=== PATIENT | female | born 1930 | race Asian ===

== ENCOUNTER 2017-10-21 09:41 | Emergency (ER) | payer OTHER, MEDICAID ==
[~2017-10-21] VITALS: Ht 157.5 cm; Wt 58.1 kg
[~2017-10-21 09:41] MED LIST: ASPI81TA2 PO; CALC1TAB50 PO; FLUO10CA65 PO; LISI-219 PO; METO-306 PO; NABU-95 PO; NITR0.4T6 SL; OMEP20CA4 PO; RABE20TA5 PO; TEMA15CA51 PO
[2017-10-21 09:45] VITALS: BP_SYST 114
[2017-10-21 10:19] LABS: BILIRUBIN,URINE NEGATIVE (NEGATIVE); BLOOD, URINE NEGATIVE (NEGATIVE); CLARITY/URINE CLEAR (CLEAR); COLOR,URINE YELLOW (YELLOW); GLUCOSE,URINE NEGATIVE (NEGATIVE); KETONES,URINE NEGATIVE (NEGATIVE); LEUKOCYTE ESTERASE ,URINE 1+ (NEGATIVE); NITRITE, URINE NEGATIVE (NEGATIVE); PROTEIN URINE NEGATIVE (NEGATIVE); UROBILINOGEN,URINE 0.2 (0.2-1.0)
[2017-10-21 10:46] LABS: BACTERIA,URINE FEW /HPF (None Seen); MUCUS,URINE None Seen /LPF (None Seen); RBC,URINE 0-3 /HPF (0-3); YEAST,URINE None Seen /HPF (None Seen)
[2017-10-21 11:12] VITALS: BP_SYST 99
== END 2017-10-21 11:12 | disposition home or self-care (01) ==
LOC: SED 09:41
DX: N39.0 Urinary tract infection, site not specified (principal); L03.211 Cellulitis of face; R03.0 Elevated blood-pressure reading, without diagnosis of hypertension; Z79.899 Other long term (current) drug therapy
CPT/HCPCS: 81000-TC; 87086; 99284

== ENCOUNTER 2017-10-30 14:01 | Inpatient (IN) | payer OTHER, MEDICAID ==
[~2017-10-30] VITALS: Ht 154.9 cm; Wt 54.0 kg
[2017-10-30 14:01] VITALS: BP_SYST 93
[2017-10-30 14:30] LABS: EOSINOPHILS # (AUTO) 0.5 K/uL (0.0-0.4); MONOCYTES # (AUTO) 0.3 K/uL (0.0-1.0)
[2017-10-30 14:37] LABS: ANION GAP 11 (5-15); CALCIUM 8.7 mg/dL (8.4-11.0); CHLORIDE 96 mmol/L (98-107); CREATININE 1.92 mg/dL (0.55-1.30); GLUCOSE 115 mg/dL (70-99); POTASSIUM 4.4 mmol/L (3.5-5.1); SODIUM SERUM 127 mmol/L (136-145); UREA NITROGEN, BLOOD 31 mg/dL (8-21)
[2017-10-30 14:38] LABS: HEMOGLOBIN 13.2 g/dL (12.0-16.0); LYMPHOCYTES # (AUTO) 0.7 K/uL (1.0-5.5); MEAN CORPUSCULAR HEMOGLOBIN 28 pg (27-31); MEAN CORPUSCULAR HGB CONC 34 % (32-36); WHITE BLOOD COUNT (AUTO) 9.5 K/uL (4.8-10.8)
[2017-10-30 14:41] LABS: BASOPHILS # (AUTO) 0.1 K/uL (0.0-0.2); BASOPHILS % (AUTO) 1.3 % (0.0-2.0); EOSINOPHILS % (AUTO) 5.4 % (0.0-4.0); HEMATOCRIT 39.3 % (36-48); INR 1.1 (0.8-1.2); LYMPHOCYTES % (AUTO) 7.7 % (20.5-51.5); MEAN CORPUSCULAR VOLUME 83 fL (79.0-98.0); MONOCYTES % (AUTO) 3.3 % (1.7-9.3); NEUTROPHILS # (AUTO) 7.9 K/uL (1.8-7.7); NEUTROPHILS % (AUTO) 82.3 % (40.0-70.0); PLATELET COUNT (AUTO) 452 K/uL (130-430); PROTHROMBIN TIME 11.6 SECS (9.5-12.5); RED BLOOD CELL COUNT(AUTO) 4.77 MIL/uL (4.2-6.2); RED CELL DISTRIBUTION WIDTH 13.9 % (9.0-15.0)
[2017-10-30 14:42] LABS: ALANINE AMINOTRANSFERASE 48 U/L (12-78); ALBUMIN 2.9 g/dL (3.4-4.8); ASPARTATE AMINOTRANSFERASE 34 U/L (10-37); TOTAL BILIRUBIN 0.6 mg/dL (0.0-1.0)
[2017-10-30] MEDS ORDERED: LEVOFLOXACIN 500 MG/D5W 100 ML IV ONE (17:30)
[2017-10-30] MEDS ORDERED: NACL 0.9% 1,000 ML IV ONE (17:30)
[2017-10-30 18:16] LABS: BILIRUBIN,URINE NEGATIVE (NEGATIVE); BLOOD, URINE NEGATIVE (NEGATIVE); CLARITY/URINE CLEAR (CLEAR); COLOR,URINE YELLOW (YELLOW); GLUCOSE,URINE NEGATIVE (NEGATIVE); KETONES,URINE NEGATIVE (NEGATIVE); LEUKOCYTE ESTERASE ,URINE TRACE (NEGATIVE); NITRITE, URINE NEGATIVE (NEGATIVE); PH,URINE 5.5 (5.0-8.0); PROTEIN URINE NEGATIVE (NEGATIVE); UROBILINOGEN,URINE 0.2 (0.2-1.0)
[2017-10-30 18:32] LABS: RBC,URINE NONE SEEN /HPF (0-3)
[2017-10-30 18:33] LABS: BACTERIA,URINE FEW /HPF (None Seen)
[2017-10-30 18:34] LABS: FINE GRANULAR CASTS,URINE 0-10 /LPF (None Seen); MUCUS,URINE 1+ /LPF (None Seen)
[2017-10-30 19:00] VITALS: BP_SYST 99
[2017-10-30] MEDS ORDERED: IPRATROPIUM BROM 0.5 MG/2.5 ML VIAL.NEB (ATROVENT) INH PRN (19:30)
[2017-10-30] MEDS ORDERED: ALBUTEROL SULFATE 0.083% 2.5 MG/3 ML VIAL.NEB INH PRN (19:30)
[2017-10-30] MEDS ORDERED: NITROGLYCERIN 0.4 MG TAB.SUBL SL PRN (19:30)
[2017-10-30 19:40] VITALS: BP_SYST 118
[2017-10-30] MEDS: ALBUTEROL SULFATE 0.083% 2.5 MG/3 ML VIAL.NEB INH SCH ×2 (20:30→23:00)
[2017-10-30] MEDS: IPRATROPIUM BROM 0.5 MG/2.5 ML VIAL.NEB (ATROVENT) INH SCH ×2 (20:30→23:00)
[2017-10-30 20:34] VITALS: BP_SYST 110
[2017-10-30] MEDS: NACL 0.9% 1,000 ML IV SCH (22:18)
[2017-10-30] MEDS: OMEPRAZOLE 20 MG CAPSULE.DR (PriLOSEC) PO SCH (22:18)
[2017-10-31 00:15] VITALS: BP_SYST 131
[2017-10-31] MEDS ORDERED: TEMAZEPAM 15 MG CAPSULE PO ONE (00:30)
[2017-10-31] MEDS: IPRATROPIUM BROM 0.5 MG/2.5 ML VIAL.NEB (ATROVENT) INH SCH ×6 (03:00→23:00)
[2017-10-31] MEDS: ALBUTEROL SULFATE 0.083% 2.5 MG/3 ML VIAL.NEB INH SCH ×6 (03:00→23:00)
[2017-10-31 08:00] VITALS: BP_SYST 102
[2017-10-31] MEDS: FLUoxetine HCL 10 MG CAPSULE (PROzac) PO SCH (09:03)
[2017-10-31 12:32] VITALS: BP_SYST 82
[2017-10-31] MEDS: NACL 0.9% 1,000 ML IV SCH (12:50)
[2017-10-31] MEDS ORDERED: NS 500 ML IV ONE ×2 (14:45→23:45)
[2017-10-31 14:56] LABS: BASOPHILS # (AUTO) 0.4 K/uL (0.0-0.2); BASOPHILS % (AUTO) 2.8 % (0.0-2.0); EOSINOPHILS # (AUTO) 0.5 K/uL (0.0-0.4); EOSINOPHILS % (AUTO) 4.2 % (0.0-4.0); HEMATOCRIT 35.8 % (36-48); HEMOGLOBIN 12.4 g/dL (12.0-16.0); LYMPHOCYTES # (AUTO) 0.8 K/uL (1.0-5.5); LYMPHOCYTES % (AUTO) 6.6 % (20.5-51.5); MEAN CORPUSCULAR HEMOGLOBIN 29 pg (27-31); MEAN CORPUSCULAR HGB CONC 35 % (32-36); MEAN CORPUSCULAR VOLUME 83 fL (79.0-98.0); MONOCYTES # (AUTO) 0.3 K/uL (0.0-1.0); MONOCYTES % (AUTO) 2.5 % (1.7-9.3); NEUTROPHILS # (AUTO) 10.7 K/uL (1.8-7.7); NEUTROPHILS % (AUTO) 83.9 % (40.0-70.0); PLATELET COUNT (AUTO) 420 K/uL (130-430); RED BLOOD CELL COUNT(AUTO) 4.29 MIL/uL (4.2-6.2); RED CELL DISTRIBUTION WIDTH 14.1 % (9.0-15.0); WHITE BLOOD COUNT (AUTO) 12.7 K/uL (4.8-10.8)
[2017-10-31 15:07] LABS: ANION GAP 12 (5-15); CALCIUM 8.1 mg/dL (8.4-11.0); CHLORIDE 99 mmol/L (98-107); CREATININE 1.75 mg/dL (0.55-1.30); GLUCOSE 96 mg/dL (70-99); POTASSIUM 4.7 mmol/L (3.5-5.1); SODIUM SERUM 130 mmol/L (136-145); UREA NITROGEN, BLOOD 28 mg/dL (8-21)
[2017-10-31 15:22] LABS: ALANINE AMINOTRANSFERASE 35 U/L (12-78); ALBUMIN 2.3 g/dL (3.4-4.8); ASPARTATE AMINOTRANSFERASE 28 U/L (10-37); THYROID STIMULATING HORMONE 2.08 uIu/mL (0.34-4.82); TOTAL BILIRUBIN 0.5 mg/dL (0.0-1.0)
[2017-10-31 16:24] VITALS: BP_SYST 90
[2017-10-31] MEDS: PIPERACILLIN/TAZO 3.375/DEX-IS 50 ML IV SCH ×2 (18:19→23:39)
[2017-10-31 19:25] VITALS: BP_SYST 122
[2017-10-31] MEDS: TEMAZEPAM 15 MG CAPSULE PO SCH (20:03)
[2017-10-31] MEDS: ACETAMINOPHEN 650 MG/20.3 ML UDC GT PRN (20:04)
[2017-10-31] MEDS: OMEPRAZOLE 20 MG CAPSULE.DR (PriLOSEC) PO SCH (20:04)
[2017-10-31] MEDS: HEPARIN SODIUM,PORCINE 5000 UNITS/ML VIAL SUBCUT SCH (20:07)
[2017-10-31 23:35] VITALS: BP_SYST 70
[2017-11-01] VITALS (27 sets, daily range): BP systolic 68–162
[2017-11-01] MEDS ORDERED: NOREPINEPHRINE BITARTRATE 4 MG in D5W 246 ML IV PRN (02:00)
[2017-11-01] MEDS: NACL 0.9% 1,000 ML IV SCH ×3 (02:57→20:42)
[2017-11-01] MEDS: ALBUTEROL SULFATE 0.083% 2.5 MG/3 ML VIAL.NEB INH SCH ×6 (03:00→23:00)
[2017-11-01] MEDS: IPRATROPIUM BROM 0.5 MG/2.5 ML VIAL.NEB (ATROVENT) INH SCH ×6 (03:00→23:00)
[2017-11-01] MEDS: PIPERACILLIN/TAZO 3.375/DEX-IS 50 ML IV SCH ×3 (05:16→18:23)
[2017-11-01] MEDS: ACETAMINOPHEN 650 MG/20.3 ML UDC GT PRN (06:11)
[2017-11-01] MEDS ORDERED: LEVOFLOXACIN 500 MG/D5W 100 ML IV STA (07:22)
[2017-11-01 08:09] LABS: BASOPHILS % (AUTO) 0.1 % (0.0-2.0); EOSINOPHILS # (AUTO) 0.9 K/uL (0.0-0.4); EOSINOPHILS % (AUTO) 7.3 % (0.0-4.0); HEMATOCRIT 33.3 % (36-48); HEMOGLOBIN 11.2 g/dL (12.0-16.0); LYMPHOCYTES # (AUTO) 0.9 K/uL (1.0-5.5); MEAN CORPUSCULAR HEMOGLOBIN 28 pg (27-31); MEAN CORPUSCULAR HGB CONC 34 % (32-36); MEAN CORPUSCULAR VOLUME 84 fL (79.0-98.0); MONOCYTES # (AUTO) 0.6 K/uL (0.0-1.0); MONOCYTES % (AUTO) 4.6 % (1.7-9.3); NEUTROPHILS # (AUTO) 10.3 K/uL (1.8-7.7); PLATELET COUNT (AUTO) 394 K/uL (130-430); RED BLOOD CELL COUNT(AUTO) 3.98 MIL/uL (4.2-6.2); RED CELL DISTRIBUTION WIDTH 14.2 % (9.0-15.0); WHITE BLOOD COUNT (AUTO) 12.7 K/uL (4.8-10.8)
[2017-11-01 08:26] LABS: ALANINE AMINOTRANSFERASE 32 U/L (12-78); ANION GAP 10 (5-15); ASPARTATE AMINOTRANSFERASE 26 U/L (10-37); CALCIUM 7.7 mg/dL (8.4-11.0); CHLORIDE 104 mmol/L (98-107); CREATININE 1.73 mg/dL (0.55-1.30); GLUCOSE 112 mg/dL (70-99); POTASSIUM 4.2 mmol/L (3.5-5.1); SODIUM SERUM 131 mmol/L (136-145); TOTAL BILIRUBIN 0.6 mg/dL (0.0-1.0); UREA NITROGEN, BLOOD 25 mg/dL (8-21)
[2017-11-01] MEDS: FLUoxetine HCL 10 MG CAPSULE (PROzac) PO SCH (09:24)
[2017-11-01] MEDS: HEPARIN SODIUM,PORCINE 5000 UNITS/ML VIAL SUBCUT SCH ×2 (09:25→20:41)
[2017-11-01] MEDS ORDERED: MORPHINE 2 MG/ML INJ. SYRINGE IVP PRN (16:30)
[2017-11-01] MEDS: MORPHINE 2 MG/ML INJ. SYRINGE IVP PRN ×2 (16:52→22:51)
[2017-11-01] MEDS: TEMAZEPAM 15 MG CAPSULE PO SCH (20:39)
[2017-11-01] MEDS: OMEPRAZOLE 20 MG CAPSULE.DR (PriLOSEC) PO SCH (20:39)
[2017-11-01] MEDS ORDERED: DILTIAZEM HCL 25 MG/5 ML VIAL IVP ONE (21:00)
[2017-11-02] VITALS (24 sets, daily range): BP systolic 82–139
[2017-11-02] MEDS: PIPERACILLIN/TAZO 3.375/DEX-IS 50 ML IV SCH ×5 (00:11→23:05)
[2017-11-02] MEDS: MORPHINE 2 MG/ML INJ. SYRINGE IVP PRN (02:51)
[2017-11-02] MEDS: NACL 0.9% 1,000 ML IV SCH ×3 (04:40→14:01)
[2017-11-02 06:06] LABS: EOSINOPHILS # (AUTO) 1.3 K/uL (0.0-0.4); EOSINOPHILS % (AUTO) 12.5 % (0.0-4.0); HEMATOCRIT 32.7 % (36-48); HEMOGLOBIN 11.3 g/dL (12.0-16.0); LYMPHOCYTES # (AUTO) 1.1 K/uL (1.0-5.5); LYMPHOCYTES % (AUTO) 11.1 % (20.5-51.5); MEAN CORPUSCULAR HEMOGLOBIN 29 pg (27-31); MEAN CORPUSCULAR HGB CONC 34 % (32-36); MEAN CORPUSCULAR VOLUME 83 fL (79.0-98.0); MONOCYTES # (AUTO) 0.8 K/uL (0.0-1.0); MONOCYTES % (AUTO) 7.7 % (1.7-9.3); NEUTROPHILS % (AUTO) 68.7 % (40.0-70.0); PLATELET COUNT (AUTO) 377 K/uL (130-430); RED BLOOD CELL COUNT(AUTO) 3.94 MIL/uL (4.2-6.2); RED CELL DISTRIBUTION WIDTH 14.5 % (9.0-15.0); WHITE BLOOD COUNT (AUTO) 10.2 K/uL (4.8-10.8)
[2017-11-02 06:37] LABS: ANION GAP 8 (5-15); CALCIUM 8.2 mg/dL (8.4-11.0); CHLORIDE 105 mmol/L (98-107); CREATININE 1.27 mg/dL (0.55-1.30); GLUCOSE 88 mg/dL (70-99); POTASSIUM 4.3 mmol/L (3.5-5.1); SODIUM SERUM 131 mmol/L (136-145); UREA NITROGEN, BLOOD 17 mg/dL (8-21)
[2017-11-02] MEDS: ALBUTEROL SULFATE 0.083% 2.5 MG/3 ML VIAL.NEB INH SCH ×5 (07:10→23:00)
[2017-11-02] MEDS: IPRATROPIUM BROM 0.5 MG/2.5 ML VIAL.NEB (ATROVENT) INH SCH ×5 (07:10→23:00)
[2017-11-02] MEDS: LEVOFLOXACIN 250 MG/D5W 50 ML IV SCH (09:03)
[2017-11-02] MEDS: HEPARIN SODIUM,PORCINE 5000 UNITS/ML VIAL SUBCUT SCH ×2 (09:04→20:50)
[2017-11-02] MEDS: FLUoxetine HCL 10 MG CAPSULE (PROzac) PO SCH (09:04)
[2017-11-02 09:18] LABS: INR 1.2 (0.8-1.2); PROTHROMBIN TIME 12.1 SECS (9.5-12.5)
[2017-11-02] MEDS: HYDROCORTISONE SOD SUCC 100 MG/2 ML VIAL IVP SCH ×2 (15:26→23:05)
[2017-11-02] MEDS: OMEPRAZOLE 20 MG CAPSULE.DR (PriLOSEC) PO SCH (20:41)
[2017-11-02] MEDS: TEMAZEPAM 15 MG CAPSULE PO SCH (20:43)
[2017-11-02] MEDS ORDERED: NS 500 ML IV ONE (22:30)
[2017-11-03] VITALS (15 sets, daily range): BP systolic 96–129
[2017-11-03] MEDS: NACL 0.9% 1,000 ML IV SCH ×2 (01:18→08:45)
[2017-11-03] MEDS: IPRATROPIUM BROM 0.5 MG/2.5 ML VIAL.NEB (ATROVENT) INH SCH ×6 (03:00→23:15)
[2017-11-03] MEDS: ALBUTEROL SULFATE 0.083% 2.5 MG/3 ML VIAL.NEB INH SCH ×6 (03:00→23:15)
[2017-11-03 04:59] LABS: ANION GAP 8 (5-15); CHLORIDE 109 mmol/L (98-107); CREATININE 0.97 mg/dL (0.55-1.30); GLUCOSE 102 mg/dL (70-99); POTASSIUM 4.3 mmol/L (3.5-5.1); SODIUM SERUM 136 mmol/L (136-145); UREA NITROGEN, BLOOD 15 mg/dL (8-21)
[2017-11-03 05:08] LABS: ALANINE AMINOTRANSFERASE 29 U/L (12-78); ALBUMIN 1.7 g/dL (3.4-4.8); ASPARTATE AMINOTRANSFERASE 24 U/L (10-37); BILIRUBIN,DIRECT 0.2 mg/dL (0.0-0.3); LIPASE 88 U/L (73-393); TOTAL BILIRUBIN 0.3 mg/dL (0.0-1.0)
[2017-11-03 05:17] LABS: EOSINOPHILS # (AUTO) 0.1 K/uL (0.0-0.4); EOSINOPHILS % (AUTO) 1.7 % (0.0-4.0); HEMATOCRIT 30.4 % (36-48); HEMOGLOBIN 10.2 g/dL (12.0-16.0); LYMPHOCYTES # (AUTO) 0.7 K/uL (1.0-5.5); MEAN CORPUSCULAR HEMOGLOBIN 28 pg (27-31); MEAN CORPUSCULAR HGB CONC 34 % (32-36); MEAN CORPUSCULAR VOLUME 84 fL (79.0-98.0); MONOCYTES # (AUTO) 0.3 K/uL (0.0-1.0); MONOCYTES % (AUTO) 4.3 % (1.7-9.3); NEUTROPHILS # (AUTO) 6.1 K/uL (1.8-7.7); PLATELET COUNT (AUTO) 365 K/uL (130-430); RED BLOOD CELL COUNT(AUTO) 3.62 MIL/uL (4.2-6.2); RED CELL DISTRIBUTION WIDTH 14.7 % (9.0-15.0)
[2017-11-03 05:48] LABS: WHITE BLOOD COUNT (AUTO) 7.2 K/uL (4.8-10.8)
[2017-11-03] MEDS: PIPERACILLIN/TAZO 3.375/DEX-IS 50 ML IV SCH ×3 (06:00→18:03)
[2017-11-03] MEDS: HYDROCORTISONE SOD SUCC 100 MG/2 ML VIAL IVP SCH (06:01)
[2017-11-03] MEDS: FLUoxetine HCL 10 MG CAPSULE (PROzac) PO SCH (08:45)
[2017-11-03] MEDS: LEVOFLOXACIN 250 MG/D5W 50 ML IV SCH (08:45)
[2017-11-03] MEDS: HEPARIN SODIUM,PORCINE 5000 UNITS/ML VIAL SUBCUT SCH ×2 (08:47→21:12)
[2017-11-03] MEDS ORDERED: MILK OF MAGNESIA 30 ML UDC PO PRN (10:45)
[2017-11-03] MEDS ORDERED: BISACODYL 10 MG/SUPPOSITORY RC ONE (10:45)
[2017-11-03] MEDS: ALBUMIN HUMAN 25% 100 ML IV SCH ×3 (11:20→19:16)
[2017-11-03] MEDS ORDERED: AMIODARONE HCL 900 MG in D5W 482 ML IV SCH (12:15)
[2017-11-03] MEDS ORDERED: NS 100 ML IV ONE (12:15)
[2017-11-03] MEDS ORDERED: ALBUMIN HUMAN 25% 100 ML IV ONE (12:15)
[2017-11-03] MEDS: MORPHINE 2 MG/ML INJ. SYRINGE IVP PRN (12:46)
[2017-11-03] MEDS ORDERED: FURO-150 PO (13:38)
[2017-11-03] MEDS ORDERED: OLME40TA13 PO (13:38)
[2017-11-03] MEDS ORDERED: VITD2000 PO (13:38)
[2017-11-03] MEDS ORDERED: POTA-118 PO (13:38)
[2017-11-03] MEDS ORDERED: SIMV20TA2 PO (13:38)
[2017-11-03] MEDS ORDERED: IBUP-1969 PO (13:38)
[2017-11-03] MEDS ORDERED: LEVO50TA77 PO (13:38)
[2017-11-03] MEDS ORDERED: FUROSEMIDE 40 MG/4 ML VIAL IVP ONE (14:15)
[2017-11-03] MEDS: OMEPRAZOLE 20 MG CAPSULE.DR (PriLOSEC) PO SCH (21:01)
[2017-11-03] MEDS: DOCUSATE SODIUM 100 MG CAPSULE PO SCH (21:05)
[2017-11-03] MEDS: TEMAZEPAM 15 MG CAPSULE PO SCH (21:06)
[2017-11-04] MEDS: PIPERACILLIN/TAZO 3.375/DEX-IS 50 ML IV SCH ×5 (01:36→23:13)
[2017-11-04 01:50] VITALS: BP_SYST 112
[2017-11-04] MEDS: ALBUTEROL SULFATE 0.083% 2.5 MG/3 ML VIAL.NEB INH SCH ×6 (03:00→23:00)
[2017-11-04] MEDS: IPRATROPIUM BROM 0.5 MG/2.5 ML VIAL.NEB (ATROVENT) INH SCH ×5 (03:00→23:00)
[2017-11-04 08:00] VITALS: BP_SYST 109
[2017-11-04 08:15] LABS: ALANINE AMINOTRANSFERASE 46 U/L (12-78); ALBUMIN 3.1 g/dL (3.4-4.8); ANION GAP 10 (5-15); CHLORIDE 110 mmol/L (98-107); CHOLESTEROL 72 mg/dL (<200); CREATININE 1.28 mg/dL (0.55-1.30); GLUCOSE 88 mg/dL (70-99); HDL CHOLESTEROL 16 mg/dL (>55); LDL CHOLESTEROL 44 mg/dL (<100); SODIUM SERUM 141 mmol/L (136-145); THYROID STIMULATING HORMONE 2.49 uIu/mL (0.34-4.82); TOTAL BILIRUBIN 0.8 mg/dL (0.0-1.0); TRIGLYCERIDES 125 mg/dL (30-150); UREA NITROGEN, BLOOD 18 mg/dL (8-21)
[2017-11-04 08:21] LABS: HEMOGLOBIN 9.1 g/dL (12.0-16.0); MEAN CORPUSCULAR HEMOGLOBIN 29 pg (27-31); MEAN CORPUSCULAR HGB CONC 34 % (32-36); MEAN CORPUSCULAR VOLUME 85 fL (79.0-98.0); PLATELET COUNT (AUTO) 376 K/uL (130-430); RED BLOOD CELL COUNT(AUTO) 3.19 MIL/uL (4.2-6.2); RED CELL DISTRIBUTION WIDTH 14.5 % (9.0-15.0); WHITE BLOOD COUNT (AUTO) 9.3 K/uL (4.8-10.8)
[2017-11-04 08:34] LABS: ASPARTATE AMINOTRANSFERASE 55 U/L (10-37); LIPASE 328 U/L (73-393)
[2017-11-04] MEDS: POLYETHYLENE GLYCOL 3350, 17 GM/ POWD.PACK PO SCH (09:16)
[2017-11-04] MEDS: FLUoxetine HCL 10 MG CAPSULE (PROzac) PO SCH (09:16)
[2017-11-04] MEDS: DOCUSATE SODIUM 100 MG CAPSULE PO SCH ×2 (09:16→20:55)
[2017-11-04 09:17] LABS: TOTAL IRON BIND. CAPACITY 65 ug/dL (250-450)
[2017-11-04] MEDS: HEPARIN SODIUM,PORCINE 5000 UNITS/ML VIAL SUBCUT SCH ×2 (09:17→20:54)
[2017-11-04] MEDS: LEVOFLOXACIN 250 MG/D5W 50 ML IV SCH (09:28)
[2017-11-04] MEDS ORDERED: POTASSIUM CHLORIDE 20 MEQ/PKT PACKET PO ONE (10:00)
[2017-11-04 11:06] LABS: ATYPICAL LYMPHOCYTES % 0 % (0-0); BAND % (MANUAL) 7 % (0-6); LYMPHOCYTES % (MANUAL) 12 % (20-46); MONOCYTES % (MANUAL) 4 % (0-11)
[2017-11-04 11:07] LABS: BASOPHILS % (MANUAL) 0 % (0-2); EOSINOPHILS % (MANUAL) 5 % (0-7)
[2017-11-04 11:09] VITALS: BP_SYST 113
[2017-11-04] MEDS: NACL 0.9% 1,000 ML IV SCH (11:10)
[2017-11-04 15:22] VITALS: BP_SYST 134
[2017-11-04 20:00] VITALS: BP_SYST 141
[2017-11-04] MEDS: OMEPRAZOLE 20 MG CAPSULE.DR (PriLOSEC) PO SCH (20:55)
[2017-11-04] MEDS: TEMAZEPAM 15 MG CAPSULE PO SCH (20:55)
[2017-11-04] MEDS: POTASSIUM CHLORIDE 20 MEQ/PKT PACKET PO SCH (20:55)
[2017-11-05 01:52] VITALS: BP_SYST 118
[2017-11-05] MEDS: PIPERACILLIN/TAZO 3.375/DEX-IS 50 ML IV SCH ×2 (05:01→11:08)
[2017-11-05] MEDS: ALBUTEROL SULFATE 0.083% 2.5 MG/3 ML VIAL.NEB INH SCH ×3 (07:46→15:04)
[2017-11-05] MEDS: IPRATROPIUM BROM 0.5 MG/2.5 ML VIAL.NEB (ATROVENT) INH SCH ×3 (07:47→15:04)
[2017-11-05 08:00] VITALS: BP_SYST 118
[2017-11-05 09:19] LABS: ANION GAP 11 (5-15); CALCIUM 8.9 mg/dL (8.4-11.0); CHLORIDE 107 mmol/L (98-107); GLUCOSE 101 mg/dL (70-99); POTASSIUM 3.3 mmol/L (3.5-5.1); SODIUM SERUM 140 mmol/L (136-145); UREA NITROGEN, BLOOD 21 mg/dL (8-21)
[2017-11-05 09:20] LABS: BASOPHILS # (AUTO) 0.1 K/uL (0.0-0.2); BASOPHILS % (AUTO) 0.7 % (0.0-2.0); EOSINOPHILS # (AUTO) 1.5 K/uL (0.0-0.4); EOSINOPHILS % (AUTO) 14.7 % (0.0-4.0); HEMATOCRIT 30.6 % (36-48); HEMOGLOBIN 10.1 g/dL (12.0-16.0); LYMPHOCYTES # (AUTO) 1.7 K/uL (1.0-5.5); LYMPHOCYTES % (AUTO) 16.1 % (20.5-51.5); MEAN CORPUSCULAR HEMOGLOBIN 28 pg (27-31); MEAN CORPUSCULAR HGB CONC 33 % (32-36); MEAN CORPUSCULAR VOLUME 85 fL (79.0-98.0); MONOCYTES % (AUTO) 9.4 % (1.7-9.3); NEUTROPHILS # (AUTO) 6.1 K/uL (1.8-7.7); NEUTROPHILS % (AUTO) 59.1 % (40.0-70.0); PLATELET COUNT (AUTO) 383 K/uL (130-430); RED BLOOD CELL COUNT(AUTO) 3.61 MIL/uL (4.2-6.2); RED CELL DISTRIBUTION WIDTH 15.1 % (9.0-15.0); WHITE BLOOD COUNT (AUTO) 10.4 K/uL (4.8-10.8)
[2017-11-05] MEDS: POLYETHYLENE GLYCOL 3350, 17 GM/ POWD.PACK PO SCH (09:40)
[2017-11-05] MEDS: POTASSIUM CHLORIDE 20 MEQ/PKT PACKET PO SCH (09:40)
[2017-11-05] MEDS: DOCUSATE SODIUM 100 MG CAPSULE PO SCH (09:40)
[2017-11-05] MEDS: FLUoxetine HCL 10 MG CAPSULE (PROzac) PO SCH (09:40)
[2017-11-05] MEDS: NACL 0.9% 1,000 ML IV SCH (09:41)
[2017-11-05] MEDS: LEVOFLOXACIN 250 MG/D5W 50 ML IV SCH (09:41)
[2017-11-05] MEDS: HEPARIN SODIUM,PORCINE 5000 UNITS/ML VIAL SUBCUT SCH (09:43)
[2017-11-05] MEDS ORDERED: POTASSIUM CHLORIDE 20 MEQ TAB.PRT.SR PO ONE (11:00)
[2017-11-05 11:28] VITALS: BP_SYST 145
[2017-11-05 11:33] VITALS: BP_SYST 145
[2017-11-05 13:46] VITALS: BP_SYST 145
[2017-11-05 15:08] VITALS: BP_SYST 125
== END 2017-11-05 16:20 | disposition home or self-care (01) | DRG 871 ==
LOC: SED 14:01 → STU 18:06 → SIC 11-01 02:35 → STU 11-03 13:00
PROVIDERS: ADMIT Internal Medicine Hospice and Palliative Medicine; ATTEND Internal Medicine Hospice and Palliative Medicine
PROC: 02HV33Z Insertion of Infusion Device into Superior Vena Cava, Percutaneous Approach (ICD-10-PCS; principal; 2017-11-02)
PROC: B548ZZA Ultrasonography of Superior Vena Cava, Guidance (ICD-10-PCS; 2017-11-02)
DX: A41.9 Sepsis, unspecified organism (principal); R65.21 Severe sepsis with septic shock; E43 Unspecified severe protein-calorie malnutrition; N17.0 Acute kidney failure with tubular necrosis; J98.11 Atelectasis; E87.1 Hypo-osmolality and hyponatremia; N39.0 Urinary tract infection, site not specified; K81.0 Acute cholecystitis; D64.9 Anemia, unspecified; M54.5 Low back pain; I49.9 Cardiac arrhythmia, unspecified; E03.9 Hypothyroidism, unspecified; E86.0 Dehydration; J06.9 Acute upper respiratory infection, unspecified; K56.41 Fecal impaction; I10 Essential (primary) hypertension; Z96.652 Presence of left artificial knee joint; E77.8 Other disorders of glycoprotein metabolism; E66.9 Obesity, unspecified; Z68.22 Body mass index [BMI] 22.0-22.9, adult; Z79.899 Other long term (current) drug therapy; Z79.82 Long term (current) use of aspirin
CPT/HCPCS: 36415; 71045; 71250-TC; 74018; 76705; 76770; 78226; 80048; 80053; 80061; 80076; 81000-TC; 82533; 83540-TC; 83550-TC; 83605; 83690-TC; 83735-TC; 83880; 84443-TC; 84484; 85007; 85025; 85027; 85610-TC; 85730-TC; 87040-TC; 87081; 87086; 87186-TC; 93005; 93306; 93970; 94640; 94760; 96365; 97110-GP; 97116-GP; 97530-GP; 99285; A9537; C1751; J1644; J1720; J1940; J1956; J2270; J2543; J3490; J7030; J7040; J7050; J7060; J7613; P9046

== ENCOUNTER 2017-12-02 14:33 | Emergency (ER) | payer OTHER, MEDICAID ==
[~2017-12-02] VITALS: Ht 152.4 cm; Wt 59.0 kg
[~2017-12-02 14:33] MED LIST changes: -ASPI81TA2 PO; -CALC1TAB50 PO; -FLUO10CA65 PO; +FURO-150 PO; +IBUP-1969 PO; -LISI-219 PO; -METO-306 PO; -NABU-95 PO; -NITR0.4T6 SL; +OLME40TA13 PO; -OMEP20CA4 PO; +POTA10TA15 PO; -RABE20TA5 PO; +SIMV20TA2 PO; +SYN50 PO; -TEMA15CA51 PO; +VITD2000 PO
[2017-12-02 14:37] VITALS: BP_SYST 98
[2017-12-02] MEDS ORDERED: NACL 0.9% 1,000 ML IV ONE (15:00)
[2017-12-02 15:55] LABS: BASOPHILS % (AUTO) 0.3 % (0.0-2.0); EOSINOPHILS # (AUTO) 2.2 K/uL (0.0-0.4); HEMATOCRIT 38.6 % (36-48); HEMOGLOBIN 12.7 g/dL (12.0-16.0); LYMPHOCYTES # (AUTO) 1.6 K/uL (1.0-5.5); LYMPHOCYTES % (AUTO) 10.4 % (20.5-51.5); MEAN CORPUSCULAR HEMOGLOBIN 29 pg (27-31); MEAN CORPUSCULAR HGB CONC 33 % (32-36); MEAN CORPUSCULAR VOLUME 87 fL (79.0-98.0); MONOCYTES # (AUTO) 1.3 K/uL (0.0-1.0); MONOCYTES % (AUTO) 8.5 % (1.7-9.3); NEUTROPHILS # (AUTO) 10.7 K/uL (1.8-7.7); PLATELET COUNT (AUTO) 477 K/uL (130-430); RED BLOOD CELL COUNT(AUTO) 4.42 MIL/uL (4.2-6.2); WHITE BLOOD COUNT (AUTO) 15.8 K/uL (4.8-10.8)
[2017-12-02] MEDS ORDERED: TEMA15CA5 PO (16:04)
[2017-12-02] MEDS ORDERED: ALLO100T PO (16:04)
[2017-12-02 16:20] LABS: INR 1.1 (0.8-1.2); PROTHROMBIN TIME 11.3 SECS (9.5-12.5)
[2017-12-02 16:21] LABS: ANION GAP 6 (5-15); CALCIUM 9.6 mg/dL (8.4-11.0); CREATININE 1.41 mg/dL (0.55-1.30); GLUCOSE 108 mg/dL (70-99); POTASSIUM 4.5 mmol/L (3.5-5.1); UREA NITROGEN, BLOOD 42 mg/dL (8-21)
[2017-12-02 16:22] LABS: NEUTROPHILS % (AUTO) 66.8 % (40.0-70.0)
[2017-12-02 16:34] LABS: ALANINE AMINOTRANSFERASE 13 U/L (12-78); ALBUMIN 2.4 g/dL (3.4-4.8); ASPARTATE AMINOTRANSFERASE 12 U/L (10-37); FREE T4 (FREE THYROXINE) 0.6 ng/dL (0.6-1.6); TOTAL BILIRUBIN 0.5 mg/dL (0.0-1.0)
[2017-12-02 16:35] LABS: SODIUM SERUM 163 mmol/L (136-145)
[2017-12-02 16:36] LABS: ALCOHOL, BLOOD < 3 mg/dL (<10); CHLORIDE 131 mmol/L (98-107)
[2017-12-02] MEDS ORDERED: methylPREDNISolone SOD SUCC/PF 62.5 MG/ML VIAL IVP ONE (16:45)
[2017-12-02] MEDS ORDERED: AZITHROMYCIN 500 MG in NS 250 ML IV ONE (17:15)
[2017-12-02] MEDS ORDERED: AZITHROMYCIN 500 MG/VIAL (ZITHROMAX) IV ONE (17:23)
[2017-12-02] MEDS ORDERED: 0.45% NS 500 ML IV ONE (17:45)
[2017-12-02 20:09] LABS: ANION GAP 6 (5-15); CALCIUM 8.5 mg/dL (8.4-11.0); CREATININE 1.08 mg/dL (0.55-1.30); GLUCOSE 90 mg/dL (70-99); POTASSIUM 4.6 mmol/L (3.5-5.1); UREA NITROGEN, BLOOD 37 mg/dL (8-21)
[2017-12-02 20:14] LABS: ALANINE AMINOTRANSFERASE 11 U/L (12-78); ASPARTATE AMINOTRANSFERASE 13 U/L (10-37); TOTAL BILIRUBIN 0.5 mg/dL (0.0-1.0)
[2017-12-02 20:18] LABS: SODIUM SERUM 160 mmol/L (136-145)
[2017-12-02 20:19] LABS: CHLORIDE 131 mmol/L (98-107)
[2017-12-02 21:40] VITALS: BP_SYST 113
== END 2017-12-02 21:40 | disposition short-term general hospital (02) ==
LOC: SED 14:33
DX: E87.0 Hyperosmolality and hypernatremia (principal); L51.1 Stevens-Johnson syndrome; E03.9 Hypothyroidism, unspecified; M10.9 Gout, unspecified; I10 Essential (primary) hypertension; Z79.899 Other long term (current) drug therapy
CPT/HCPCS: 36415; 71045; 74018; 80053; 82140; 83605; 83880; 84439; 84484; 85025; 85610; 87040; 87186; 93005; 96361; 96365; 96375; 99285; G0482; J0456; J2930; J7030